=== PATIENT | male | born 1975 | race Caucasian/White ===

== ENCOUNTER 2017-07-27 20:37 | Inpatient (IN) ==
[2017-07-28] MEDS ORDERED: ACETAMINOPHEN 325 MG TABLET PO PRN (01:20)
[2017-07-28] MEDS ORDERED: ALBUTEROL 2.5 MG/3 ML NEB RESP TX PRN (03:10)
[2017-07-28] MEDS ORDERED: ONDANSETRON 4 MG/2 ML VIAL IV PRN (03:13)
[2017-07-28] MEDS ORDERED: MORPHINE 4 MG/1 ML VIAL IV PRN (03:13)
[2017-07-28 04:12] LABS: Basophils % 0.2 % (0.0-0.8); Hematocrit 57.9 VOL% (42.0-52.0); Hemoglobin 19.9 GM/DL (14.0-18.0); Immature Granulocytes % 0.5 %; Immature Granulocytes Absolute 0.04 #; Lymphocytes # 0.8 10*3/uL (1.4-4.0); Lymphocytes % 9.4 % (21.2-54.2); Mean Corpuscular HGB Conc 34.4 GM/DL (32-36); Mean Corpuscular Hemoglobin 35 PG (27-34); Mean Corpuscular Volume 100.9 FL (87-102); Mean Platelet Volume 9.5 FL (9.6-12.0); Monocytes # 0.1 10*3/uL (0.11-0.8); Monocytes % 0.7 % (1.7-12.7); Neutrophils # 7.9 10*3/uL (1.4-7.4); Neutrophils % 89.2 % (38.7-73.9); Platelet Count 193 T/CUMM (130-400); Red Blood Count 5.74 MC/CUMM (3.8-5.5); White Blood Count 8.9 T/CUMM (4-12)
[2017-07-28 04:16] LABS: INR 1.3; Partial Thromboplastin Time 32.7 SECS (0-40)
[2017-07-28] MEDS: methylPREDNISolone SOD SUC 40 MG/1 ML VIAL IV SCH ×3 (04:16→21:25)
[2017-07-28] MEDS: SODIUM CHLORIDE 0.9% 1,000 ML IV SCH (04:20)
[2017-07-28 05:10] LABS: Apearance,Urine CLEAR (Clear); Bacteria,Urine Occasional /HPF (Few); Bilirubin,Urine Negative (Negative); Blood, Urine Moderate mg/dL (Negative); Glucose,Urine (UA) >=500 mg/dL (Negative); Ketones,Urine Negative (Negative); Mucus,Urine Occasional /LPF (Occasional); Nitrite,Urine Negative (Negative); Protein,Urine Negative; RBC,Urine 1 /HPF (0-4); Squamous Epithelial Cell,Urine Occasional /HPF (0-10); Urine Color Yellow (Yellow); Urine Specific Gravity 1.012 (1.001-1.035); Urine Urobilinogen < 2.0 EU/DL (0.2-1.0); WBC,Urine 2 /HPF (0-6)
[2017-07-28] MEDS: LEVOFLOXACIN INJ 750 MG in PREMIX 1 EACH IV SCH (05:16)
[2017-07-28 05:27] LABS: Albumin 3.2 G/DL (3.4-5.0); Bilirubin,Total 0.6 MG/DL (0.2-1.0); Calcium 8.5 MG/DL (8.5-10.1); Osmolality,Calculated 280.1 MOS/KG (273-304); Potassium 3.8 MMOL/L (3.5-5.1); Risk Ratio 6.21; Thyroid Stimulating Hormone 1.1 uIU/ml (0.358-3.74)
[2017-07-28] MEDS: ALBUTEROL/IPRATROPIUM 3 ML NEB RESP TX SCH ×3 (06:30→19:39)
[2017-07-28] MEDS: ASPIRIN EC 81 MG TABLET PO SCH (08:03)
[2017-07-28] MEDS: FLUTICASONE 110 MCG/PUFF INHALER 12 GM INH SCH (08:03)
[2017-07-28] MEDS: FUROSEMIDE 80 MG TABLET PO SCH (08:03)
[2017-07-28] MEDS: PANTOPRAZOLE 40 MG TABLET PO SCH (08:03)
[2017-07-28] MEDS: SPIRONOLACTONE 25 MG TABLET PO SCH (08:03)
[2017-07-28] MEDS: LOSARTAN 50 MG TABLET PO SCH (08:04)
[2017-07-28] MEDS: CARVEDILOL 25 MG TABLET PO SCH ×2 (08:05→21:24)
[2017-07-28] MEDS ORDERED: CARVEDILOL 25 MG TABLET PO SCH (09:00)
[2017-07-28 13:51] LABS: ABG HCO3 28.5 MMOL/L (20-26); ABG PCO2 50.1 MM HG (35-48); ABG PH 7.406 (7.35-7.45); ABG TCO2 24.9 MMOL/L (23-27)
[2017-07-28 13:52] LABS: ABG Base Excess 4.9 MMOL/L (-2.5-2.5)
[2017-07-28] MEDS: MAGNESIUM OXIDE 400 MG TABLET PO SCH (15:01)
[2017-07-28] MEDS: PRAVASTATIN 20 MG TABLET PO SCH (21:24)
[2017-07-28] MEDS: ACETYLCYSTEINE 600 MG CAPSULE PO SCH (21:25)
[2017-07-28] MEDS: MONTELUKAST 10 MG TABLET PO SCH (21:25)
[2017-07-29] MEDS: ALBUTEROL/IPRATROPIUM 3 ML NEB RESP TX SCH ×4 (00:09→19:00)
[2017-07-29] MEDS: SODIUM CHLORIDE 0.9% 1,000 ML IV SCH ×2 (00:53→21:09)
[2017-07-29] MEDS: LEVOFLOXACIN INJ 750 MG in PREMIX 1 EACH IV SCH (04:52)
[2017-07-29] MEDS: methylPREDNISolone SOD SUC 40 MG/1 ML VIAL IV SCH ×3 (04:52→21:08)
[2017-07-29 06:30] LABS: Calcium 8.5 MG/DL (8.5-10.1); Osmolality,Calculated 271.8 MOS/KG (273-304)
[2017-07-29] MEDS: LOSARTAN 50 MG TABLET PO SCH (08:36)
[2017-07-29] MEDS: FUROSEMIDE 80 MG TABLET PO SCH (08:36)
[2017-07-29] MEDS: MONTELUKAST 10 MG TABLET PO SCH ×2 (08:36→21:09)
[2017-07-29] MEDS: ASPIRIN EC 81 MG TABLET PO SCH (08:37)
[2017-07-29] MEDS: RIVAROXABAN 20 MG TABLET PO SCH (08:37)
[2017-07-29] MEDS: SPIRONOLACTONE 25 MG TABLET PO SCH (08:37)
[2017-07-29] MEDS: MAGNESIUM OXIDE 400 MG TABLET PO SCH (08:37)
[2017-07-29] MEDS: ACETYLCYSTEINE 600 MG CAPSULE PO SCH ×2 (08:37→21:09)
[2017-07-29] MEDS: CARVEDILOL 25 MG TABLET PO SCH ×2 (08:37→21:09)
[2017-07-29] MEDS: PANTOPRAZOLE 40 MG TABLET PO SCH (08:38)
[2017-07-29] MEDS: FLUTICASONE 110 MCG/PUFF INHALER 12 GM INH SCH (08:41)
[2017-07-29] MEDS: PRAVASTATIN 20 MG TABLET PO SCH (21:09)
[2017-07-30] MEDS: ALBUTEROL/IPRATROPIUM 3 ML NEB RESP TX SCH ×2 (00:07→06:58)
[2017-07-30 05:11] LABS: Basophils % 0.1 % (0.0-0.8); Hematocrit 54.5 VOL% (42.0-52.0); Hemoglobin 18.2 GM/DL (14.0-18.0); Immature Granulocytes Absolute 0.16 #; Lymphocytes # 0.9 10*3/uL (1.4-4.0); Lymphocytes % 5.2 % (21.2-54.2); Mean Corpuscular HGB Conc 33.4 GM/DL (32-36); Mean Corpuscular Hemoglobin 35 PG (27-34); Mean Corpuscular Volume 103.6 FL (87-102); Mean Platelet Volume 9.6 FL (9.6-12.0); Monocytes # 0.5 10*3/uL (0.11-0.8); Neutrophils # 15.3 10*3/uL (1.4-7.4); Neutrophils % 90.7 % (38.7-73.9); Platelet Count 179 T/CUMM (130-400); Red Blood Count 5.26 MC/CUMM (3.8-5.5); Red Cell Distribution Width 12.9 % (9.3-17.3); White Blood Count 16.8 T/CUMM (4-12)
[2017-07-30] MEDS: LEVOFLOXACIN INJ 750 MG in PREMIX 1 EACH IV SCH (05:24)
[2017-07-30] MEDS: methylPREDNISolone SOD SUC 40 MG/1 ML VIAL IV SCH ×2 (05:24→11:15)
[2017-07-30 05:43] LABS: Lymphocytes 3 % (20-55); Platelet Estimate Normal; Segmented Neutrophils 95 % (50-85); Total Cells Counted 100
[2017-07-30] MEDS: MAGNESIUM OXIDE 400 MG TABLET PO SCH (08:28)
[2017-07-30] MEDS: MONTELUKAST 10 MG TABLET PO SCH (08:28)
[2017-07-30] MEDS: ASPIRIN EC 81 MG TABLET PO SCH (08:28)
[2017-07-30] MEDS: PANTOPRAZOLE 40 MG TABLET PO SCH (08:28)
[2017-07-30] MEDS: LOSARTAN 50 MG TABLET PO SCH (08:28)
[2017-07-30] MEDS: ACETYLCYSTEINE 600 MG CAPSULE PO SCH (08:28)
[2017-07-30] MEDS: SPIRONOLACTONE 25 MG TABLET PO SCH (08:28)
[2017-07-30] MEDS: FUROSEMIDE 80 MG TABLET PO SCH (08:29)
[2017-07-30] MEDS: CARVEDILOL 25 MG TABLET PO SCH (08:29)
[2017-07-30] MEDS: RIVAROXABAN 20 MG TABLET PO SCH (08:29)
[2017-07-30] MEDS: FLUTICASONE 110 MCG/PUFF INHALER 12 GM INH SCH (08:30)
[2017-07-30 09:07] LABS: ABG HCO3 28.5 MMOL/L (20-26); ABG Oxygen Saturation 88.8 % (95-100); ABG PCO2 50.9 MM HG (35-48); ABG PH 7.403 (7.35-7.45); ABG TCO2 25.3 MMOL/L (23-27)
[2017-07-30 11:47] VITALS: BP 156/94
[2017-08-01 13:45] LABS: Cotinine 157 ng/mL (<3.0); Nicotine < 3.0 ng/mL (<3.0)
== END 2017-07-30 13:02 | disposition home or self-care (01) | DRG 177 ==
LOC: N.5E 22:29 → SUATTDRO 22:29
PROVIDERS: ADMIT Family Medicine; ATTEND Hospitalist

== ENCOUNTER 2019-01-08 12:39 | Inpatient (IN) ==
[2019-01-08 13:27] LABS: Basophils % 0.4 % (0.0-0.8); Eosinophils # 0.1 10*3/uL (0.0-0.87); Eosinophils % 0.8 % (0.00-10.9); Hematocrit 49.4 VOL% (42.0-52.0); Immature Granulocytes % 0.6 %; Immature Granulocytes Absolute 0.06 #; Lymphocytes # 1.7 10*3/uL (1.4-4.0); Lymphocytes % 16.4 % (21.2-54.2); Mean Corpuscular HGB Conc 32.4 GM/DL (32-36); Mean Corpuscular Volume 103.8 FL (87-102); Mean Platelet Volume 8.9 FL (9.6-12.0); Monocytes % 6.8 % (1.7-12.7); Platelet Count 207 T/CUMM (130-400); Red Blood Count 4.76 MC/CUMM (3.8-5.5); Red Cell Distribution Width 14.3 % (9.3-17.3); White Blood Count 10.5 T/CUMM (4-12)
[2019-01-08] MEDS ORDERED: ALBUTEROL 2.5 MG/3 ML NEB RESP TX STA (13:58)
[2019-01-08] MEDS ORDERED: FUROSEMIDE 40 MG/4 ML VIAL IV STA (13:58)
[2019-01-08 14:06] LABS: Bilirubin,Total 0.4 MG/DL (0.2-1.0); Calcium 8.3 MG/DL (8.5-10.1); Osmolality,Calculated 272.1 MOS/KG (273-304); Total Protein 8.1 G/DL (6.4-8.3)
[2019-01-08] MEDS ORDERED: ONDANSETRON 4 MG/2 ML VIAL IV PRN (15:35)
[2019-01-08] MEDS ORDERED: INFLUENZA VIRUS VACCINE 0.5 ML SYRINGE IM ONE (16:46)
[2019-01-08] MEDS: POTASSIUM CHLORIDE 20 MEQ TABLET PO PRN ×2 (17:15→19:04)
[2019-01-08 17:59] LABS: Apearance,Urine CLEAR (Clear); Bilirubin,Urine Negative (Negative); Blood, Urine Small mg/dL (Negative); Glucose,Urine (UA) Negative (Negative); Ketones,Urine Negative (Negative); Mucus,Urine Occasional /LPF (Occasional); Nitrite,Urine Negative (Negative); Protein,Urine Negative; RBC,Urine 3 /HPF (0-4); Urine Color Straw (Yellow); Urine Urobilinogen < 2.0 EU/DL (0.2-1.0)
[2019-01-08] MEDS: ALBUTEROL/IPRATROPIUM 3 ML NEB RESP TX SCH (19:57)
[2019-01-08] MEDS ORDERED: MAGNESIUM OXIDE 400 MG TABLET PO SCH (21:00)
[2019-01-09] MEDS: ALBUTEROL/IPRATROPIUM 3 ML NEB RESP TX SCH ×7 (00:44→23:30)
[2019-01-09 04:45] LABS: Basophils % 0.3 % (0.0-0.8); Eosinophils # 0.1 10*3/uL (0.0-0.87); Eosinophils % 0.8 % (0.00-10.9); Hematocrit 48.3 VOL% (42.0-52.0); Hemoglobin 14.9 GM/DL (14.0-18.0); Immature Granulocytes % 0.4 %; Immature Granulocytes Absolute 0.04 #; Lymphocytes # 1.7 10*3/uL (1.4-4.0); Lymphocytes % 17.8 % (21.2-54.2); Mean Corpuscular HGB Conc 30.8 GM/DL (32-36); Mean Corpuscular Volume 105.9 FL (87-102); Mean Platelet Volume 9.1 FL (9.6-12.0); Monocytes % 6.6 % (1.7-12.7); Neutrophils % 74.1 % (38.7-73.9); Platelet Count 200 T/CUMM (130-400); Red Blood Count 4.56 MC/CUMM (3.8-5.5); Red Cell Distribution Width 14.3 % (9.3-17.3); White Blood Count 9.8 T/CUMM (4-12)
[2019-01-09 05:08] LABS: Calcium 8.3 MG/DL (8.5-10.1); Osmolality,Calculated 280.5 MOS/KG (273-304); Risk Ratio 5.57; Thyroid Stimulating Hormone 3.42 uIU/ml (0.358-3.74); VLDL CHOLESTEROL 33.2 MG/DL
[2019-01-09] MEDS ORDERED: ALBUTEROL 2.5 MG/3 ML NEB RESP TX SCH (07:00)
[2019-01-09] MEDS ORDERED: MAGNESIUM SULF RIDER 4 GM in PREMIX 1 EACH IV PRN (07:51)
[2019-01-09] MEDS ORDERED: MAGNESIUM SULF RIDER 2 GM in PREMIX 1 EACH IV PRN (07:51)
[2019-01-09] MEDS ORDERED: PANTOPRAZOLE 40 MG TABLET PO SCH (09:00)
[2019-01-09] MEDS: FUROSEMIDE 40 MG/4 ML VIAL IV SCH ×2 (09:34→16:36)
[2019-01-09] MEDS: ASPIRIN EC 81 MG TABLET PO SCH (09:39)
[2019-01-09] MEDS: POTASSIUM CHLORIDE 20 MEQ TABLET PO PRN (09:39)
[2019-01-09] MEDS: SPIRONOLACTONE 25 MG TABLET PO SCH (09:39)
[2019-01-09] MEDS: RIVAROXABAN 20 MG TABLET PO SCH (09:39)
[2019-01-09] MEDS: PANTOPRAZOLE 40 MG TABLET PO SCH (09:39)
[2019-01-09] MEDS: NEBIVOLOL 10 MG TABLET PO SCH (09:40)
[2019-01-09] MEDS: SIMVASTATIN 10 MG TABLET PO SCH (09:40)
[2019-01-09] MEDS: LOSARTAN 50 MG TABLET PO SCH (09:40)
[2019-01-09] MEDS ORDERED: AMINOPHYLLINE 250 MG in SODIUM CHLORIDE 0.9% 100 ML IV ONE (10:30)
[2019-01-09] MEDS: MONTELUKAST 10 MG TABLET PO SCH ×2 (10:32→21:21)
[2019-01-09 11:11] LABS: % Iron Saturation 11.1 % (18-50)
[2019-01-09 11:27] LABS: Folate 5.6 NG/ML (5.4-24.0)
[2019-01-09] MEDS: MEROPENEM 1,000 MG in SODIUM CHLORIDE 0.9% 100 ML IV SCH ×2 (11:53→21:20)
[2019-01-09] MEDS ORDERED: AMINOPHYLLINE 500 MG in SODIUM CHLORIDE 0.9% 480 ML IV SCH (13:50)
[2019-01-09] MEDS: NICOTINE 14 MG/24 HR PATCH TRANSDERM SCH (14:02)
[2019-01-09 14:47] LABS: Barbiturates Screen,Urine Negative (Negative); Benzodiazepines Screen,Urine Negative (Negative); Cannabinoid Screen,Urine Positive (Negative); Opiate Screen,Urine Positive (Negative); Phencyclidine Screen,Urine Negative (Negative)
[2019-01-10] MEDS: ALBUTEROL/IPRATROPIUM 3 ML NEB RESP TX SCH ×6 (02:48→23:49)
[2019-01-10] MEDS: MEROPENEM 1,000 MG in SODIUM CHLORIDE 0.9% 100 ML IV SCH ×3 (03:54→19:07)
[2019-01-10] MEDS: ACETAMINOPHEN 325 MG TABLET PO PRN ×2 (03:58→20:09)
[2019-01-10 04:56] LABS: Basophils % 0.3 % (0.0-0.8); Eosinophils # 0.1 10*3/uL (0.0-0.87); Eosinophils % 1.4 % (0.00-10.9); Hemoglobin 13.8 GM/DL (14.0-18.0); Immature Granulocytes % 0.3 %; Immature Granulocytes Absolute 0.03 #; Lymphocytes # 1.8 10*3/uL (1.4-4.0); Lymphocytes % 18.9 % (21.2-54.2); Mean Corpuscular HGB Conc 30.7 GM/DL (32-36); Mean Corpuscular Volume 106.9 FL (87-102); Mean Platelet Volume 9.3 FL (9.6-12.0); Monocytes % 7.9 % (1.7-12.7); Neutrophils % 71.2 % (38.7-73.9); Platelet Count 192 T/CUMM (130-400); Red Blood Count 4.21 MC/CUMM (3.8-5.5); White Blood Count 9.7 T/CUMM (4-12)
[2019-01-10 05:22] LABS: Calcium 8.2 MG/DL (8.5-10.1)
[2019-01-10] MEDS: FUROSEMIDE 40 MG/4 ML VIAL IV SCH ×2 (08:54→16:17)
[2019-01-10] MEDS: NICOTINE 14 MG/24 HR PATCH TRANSDERM SCH (08:55)
[2019-01-10] MEDS: MONTELUKAST 10 MG TABLET PO SCH ×2 (08:55→20:07)
[2019-01-10] MEDS: SPIRONOLACTONE 25 MG TABLET PO SCH (08:56)
[2019-01-10] MEDS: SIMVASTATIN 10 MG TABLET PO SCH (08:56)
[2019-01-10] MEDS: NEBIVOLOL 10 MG TABLET PO SCH (08:56)
[2019-01-10] MEDS: ASPIRIN EC 81 MG TABLET PO SCH (08:56)
[2019-01-10] MEDS: RIVAROXABAN 20 MG TABLET PO SCH (08:56)
[2019-01-10] MEDS: LOSARTAN 50 MG TABLET PO SCH (08:56)
[2019-01-10] MEDS: PANTOPRAZOLE 40 MG TABLET PO SCH (08:57)
[2019-01-10] MEDS ORDERED: CYANOCOBALAMIN 1000 MCG/1 ML VIAL IM ONE (09:57)
[2019-01-10] MEDS ORDERED: THEOPHYLLINE ER 100 MG TABLET PO SCH (10:00)
[2019-01-10] MEDS: FERROUS SULFATE 325 MG TABLET PO SCH ×2 (10:27→20:07)
[2019-01-10] MEDS: THEOPHYLLINE ER (24 HR) 400 MG CAPSULE PO SCH (10:27)
[2019-01-11 02:59] LABS: Basophils % 0.2 % (0.0-0.8); Eosinophils # 0.1 10*3/uL (0.0-0.87); Eosinophils % 1.2 % (0.00-10.9); Hematocrit 45.2 VOL% (42.0-52.0); Hemoglobin 13.8 GM/DL (14.0-18.0); Immature Granulocytes % 0.3 %; Immature Granulocytes Absolute 0.03 #; Lymphocytes # 1.5 10*3/uL (1.4-4.0); Lymphocytes % 15.8 % (21.2-54.2); Mean Corpuscular HGB Conc 30.5 GM/DL (32-36); Mean Corpuscular Volume 106.4 FL (87-102); Mean Platelet Volume 9.4 FL (9.6-12.0); Monocytes % 6.3 % (1.7-12.7); Neutrophils % 76.2 % (38.7-73.9); Platelet Count 209 T/CUMM (130-400); Red Blood Count 4.25 MC/CUMM (3.8-5.5); White Blood Count 9.5 T/CUMM (4-12)
[2019-01-11] MEDS: ALBUTEROL/IPRATROPIUM 3 ML NEB RESP TX SCH ×3 (03:16→11:05)
[2019-01-11 03:29] LABS: Calcium 8.1 MG/DL (8.5-10.1)
[2019-01-11] MEDS: MEROPENEM 1,000 MG in SODIUM CHLORIDE 0.9% 100 ML IV SCH ×2 (04:22→10:50)
[2019-01-11] MEDS: POTASSIUM CHLORIDE 20 MEQ TABLET PO PRN ×4 (09:15→14:43)
[2019-01-11] MEDS: NICOTINE 14 MG/24 HR PATCH TRANSDERM SCH (09:15)
[2019-01-11] MEDS: ASPIRIN EC 81 MG TABLET PO SCH (09:16)
[2019-01-11] MEDS: THEOPHYLLINE ER (24 HR) 400 MG CAPSULE PO SCH (09:16)
[2019-01-11] MEDS: LOSARTAN 50 MG TABLET PO SCH (09:16)
[2019-01-11] MEDS: SPIRONOLACTONE 25 MG TABLET PO SCH (09:17)
[2019-01-11] MEDS: SIMVASTATIN 10 MG TABLET PO SCH (09:17)
[2019-01-11] MEDS: RIVAROXABAN 20 MG TABLET PO SCH (09:17)
[2019-01-11] MEDS: NEBIVOLOL 10 MG TABLET PO SCH (09:17)
[2019-01-11] MEDS: FERROUS SULFATE 325 MG TABLET PO SCH (09:17)
[2019-01-11] MEDS: MONTELUKAST 10 MG TABLET PO SCH (09:17)
[2019-01-11] MEDS: PANTOPRAZOLE 40 MG TABLET PO SCH (09:17)
[2019-01-11] MEDS: FUROSEMIDE 40 MG/4 ML VIAL IV SCH (09:18)
[2019-01-11 12:08] VITALS: BP 111/69
== END 2019-01-11 15:53 | disposition home or self-care (01) | DRG 292 ==
LOC: N.ED 12:39 → N.EDINP 14:29 → N.TELEN 15:19
PROVIDERS: ADMIT Internal Medicine; ATTEND Internal Medicine